=== PATIENT | male | born 1950 | race Caucasian/White ===

== ENCOUNTER 2017-04-07 17:56 | Observation (INO) | payer MEDICARE, MEDICAID ==
[~2017-04-07] VITALS: Ht 177.8 cm; Wt 93.4 kg
[~2017-04-07 17:56] MED LIST: CEPH500C PO; COU5 PO; DIGO250T PO; LISI2.5T66 PO; PRA20 PO; SPIR25TA17 PO; TOPR25T PO; TRS20T PO; VICODIN 5-3251 EACH PO
[2017-04-07 18:07] VITALS: BP 93/53; PULSE 75; RESP 17; O2SAT 97
[2017-04-07] MEDS ORDERED: HYDROmorphone 1 mg/mL Inj ONE (19:23)
[2017-04-07] MEDS ORDERED: Ondansetron 2 mg/mL 2 mL Inj ONE (19:30)
--- NOTE | 2017-04-07 20:36 | ED.REPORT ---
HPI-General Illness Date of Service Apr 07, 2017 ED Provider: Isaak Cai MD Patient is a 66 year old male with a history of diabetes, CHF, atrial fibrillation on Warfarin and pacemaker who presents to the ED due to a fall last night around 2100. Associated symptoms include right shoulder pain. He denies vomiting, chest pain, abdominal pain or syncope. The patient states that he became dizzy, fell and hit his head. Patient was initially evaluated at [facility] yesterday and was supposed to go back to [facility] for further imaging but through some miscommunication he ended up here at the ED. Per the patient's friend, the patient has had difficulty walking and thinks he would have another fall if he stayed at home. Nursing Notes Stated Complaint: PAIN AND EXHAUSTION Chief Complaint: General Complaint Nursing Notes Reviewed: Yes Allergies: Coded Allergies: No Known Allergies (Verified Allergy, Unknown, 04/07/17) Scheduled Cephalexin-Expunged Drug, Do Not Renew! (Cephalexin-Expunged Drug, Do Not Renew! ) 500 Mg Capsule 500 MG PO TID Digoxin-Expunged Drug, Do Not Renew! (Digoxin-Expunged Drug, Do Not Renew!) 250 Mcg Tablet 0.25 MG PO DAILY 250 MCG Lisinopril-Expunged Drug, Do Not Renew! (Lisinopril-Expunged Drug, Do Not Renew! ) 2.5 Mg Tablet 1.25 MG PO BID Metoprolol Suc-Expunged Drug, Do Not Renew! (Metoprolol Suc-Expunged Drug, Do Not Renew!) 25 Mg Tber 25 MG PO DAILY Pravastatin-Expunged Drug, Do Not Renew! (Pravachol-Expunged Drug, Do Not Renew! ) 20 Mg Tab 20 MG PO HS Spironolactone-Expunged Drug, Do Not Renew! (Spironolactone-Expunged Drug, Do Not Renew!) 25 Mg Tablet 12.5 MG PO DAILY Scheduled PRN Hydrocod/APAP-Expunged, Do Not Renew! (VICODIN 5/325-Expunged Drug, Do Not Renew ) 1 Each Tablet 0 EA PO Q4 PRN PRN Miscellaneous Medications Torsemide-Expunged Drug, Do Not Renew! (Torsemide-Expunged Drug, Do Not Renew!) 20 Mg Tab 20 MG PO Warfarin Inactive Drug Do Not Use (Coumadin Inactive Drug Do Not Use) 5 Mg Tablet 5 MG PO General Time Seen by MD: 20:34 Chief Complaint Other (right shoulder pain) Hx Obtained From: Patient Arrived By: Walk-in Sudden in Onset?: Yes Onset Occurred: Yesterday Symptom Duration: Since onset Caused by: Fall on ground Location: : Shoulder right Quality: Painful Severity: Current: Moderate Recent Healthcare: Recent doctor visit Past Medical History Past Medical History Reports: Congestive heart failure, Diabetes mellitus Reports: Atrial fibrillation Past Surgical History Reports: Pacemaker insertion Social History Alcohol Use: Denies alcohol use Other Social History: Good social support Ambulatory Status Independent Review of Systems Full Review of Systems Constitutional: Denies: Chills, Fever Respiratory: Denies: Non-productive cough Cardiovascular: Denies: Chest pain GI: Denies: Abdominal pain, Vomiting Musculoskeletal: Reports: Extremity pain (right shoulder) Skin: Denies Itching, Denies Rash Neurologic: Reports: Problem walking, Denies: Headache, Syncope Complete sys rev & neg: except as marked. Physical Exam Vital Signs Vital Signs Date Time Temp Pulse Resp B/P Pulse Ox O2 Delivery O2 Flow Rate FiO2 04/07/17 21:45 83 89/51 04/07/17 21:45 79 106/60 04/07/17 21:35 74 16 81/53 98 Room Air 04/07/17 18:07 37.0 75 17 93/53 97 Room Air Initial VS: Reviewed General/Constitutional: Awake, Alert Head / Eyes: Normocephalic, PERRL, EOMI hematoma over the right eye Respiratory / Chest: Atraumatic, Breath sounds NL, Breath sounds = bilat, No respiratory distress chest wall nontender Cardiovascular: Heart rate NL, Regular rhythm, Heart sounds NL Abdomen: Atraumatic, Soft, Non-tender Upper Extremities Upper Extremity / MS: Neurologic intact, Vascular intact right arm is in a sling Skin: Color NL, No rash, Warm, Dry Neurologic: Oriented X3, Speech NL, No motor deficits, No sensory deficits Psychiatric: Affect NL, Mood NL Interpretation & Diagnostics Interpretation & Diagnostics: SHOULDER CT: IMPRESSION: 1. Markedly comminuted, displaced proximal humeral fracture. The Dictated by: Alyssa Delgado M.D. on 04/07/2017 at 17:03 Approved by: Alyssa Delgado M.D. on 04/07/2017 at 17:06 Lab Results Interpretation Test 04/07/17 19:41 Hold Purple Top Tube Received (Received) Hold Blue Top Tube Received (Received) Hold [place] Top Tube Received (Received) Hold [place] Top Tube Received (Received) Re-Eval/Medical Decision Med Decision/Clinical Course CBC CMP INR at [facility] yesterday with were within normal limits. INR was 1.5. CT brain was negative. CT of the right shoulder done today at [facility] shows comminuted proximal right humeral fracture. This gentleman has some difficulty with ambulation with a wide-based gait and the degree of instability which I believe will benefit from physical therapy assessment as well as a short period of observation. I am suspicious that the difficulty with ambulation is directly related to the pain medication though further evaluation for his gait instability may be helpful regarding the recent fall and perhaps this was part of the cause for his fall in the first place. Time of Eval: 21:31 Re-Evaluation/Progress Note: Per nurses, the patient had a reasonable gait. Time of Eval: 21:57 Re-Evaluation/Progress Note: Discussed option of admit vs discharge. Time of Eval: 22:33 Re-Evaluation/Progress Note: Discussed plan for admit. Patient understands and agrees to plan. All questions were addressed. Consultation : Referral / Consult Name: Radha Reed DO Consulted With: Hospitalist Call Returned at: 23:05 Hog Room Supervisor: Agrees with eval, Agrees with plan, Accepts admit Counseled Regarding: Diagnosis, Lab results, Need for admission Discharge & Departure Primary Impression: Humeral fracture Encounter type: initial encounter Humerus Location: proximal Fracture type : closed Fracture morphology: unspecified fracture morphology Laterality: right Qualified Code: S42.201A - Unspecified fracture of upper end of right humerus, initial encounter for closed fracture Additional Impressions: Unsteady gait Hypotension Hypotension type: unspecified hypotension type Qualified Code: I95.9 - Hypotension, unspecified Disposition: ADMITTED TO HOSPITAL Discharge Condition All VS Reviewed: Yes Condition: Stable Referrals: Polo Nicole MD (PCP) Heidiibjoel Attestation Portions of this note were transcribed by Eden Enriquez. I, Dr. Cai personally performed the history, physical exam and medical decision-making; I reviewed and confirmed the accuracy of the information in the transcribed note. Signed by: Ana Rosa Wan, 04/07/17 copies to: Polo Nicole MD, Kirk H MD Apr 07, 2017 20:35 Tala Enriquez Apr 07, 2017 20:46
[2017-04-07 21:35] VITALS: BP 81/53; PULSE 74; RESP 16; O2SAT 98
[2017-04-07 21:45] VITALS: BP_SYST 106; BP_SYST 86; BP_SYST 89; BP_SYST 99; BP_DIAS 51; BP_DIAS 56; BP_DIAS 60; BP_DIAS 62; PULSE 79; PULSE 83
[2017-04-07 23:19] VITALS: BP 80/58; PULSE 83; RESP 16; O2SAT 98
[2017-04-07] MEDS ORDERED: Ondansetron 2 mg/mL 2 mL Inj IVPUSH PRN (23:40)
[2017-04-07] MEDS ORDERED: Alum-Mag Hydrox-Simeth 30 mL Suspension PO PRN (23:40)
[2017-04-08] VITALS (8 sets, daily range): BP systolic 82–108; BP diastolic 50–68; PULSE 75–95; RESP 17–18; O2SAT 90–98
[2017-04-08] MEDS ORDERED: Ondansetron 2 mg/mL 2 mL Inj IVPUSH PRN (01:20)
[2017-04-08] MEDS ORDERED: Alum-Mag Hydrox-Simeth 30 mL Suspension PO PRN (01:20)
[2017-04-08] MEDS ORDERED: Polyethylene Glycol (PEG) 17 Gm Powder PO PRN (01:20)
--- NOTE | 2017-04-08 01:57 | NUR ---
Admission Note Pt admitted to [facility] from ER around 0005, alert and oriented x3, states pain at right shoulder /10, "better" than at ER. Denies chest pain/NV/SOB/fever/chills. BP 82/55 HR 74.Lung sounds clear, HR regular, distant S1 S2, no murmur, Tele: V-paced 75 per monitoring manager. Abdomen soft, non tender, BT active. No edema at LEs. Right shoulder swollen, pain,bruises, CMS intact, right arm in sling. Right eye swollen,and bruises, abrasion at bilateral knees, left worse. Night resident Deb paged about pt low BP, request IVF,pain med. No urine output since 0900 yesterday per girl friend, aware. Oral fluids provided. IVF NS ordered and started. Call light oriented to pt, stephanie alarm on, pt informed to call when need OOB. Care ongoing.
[2017-04-08] MEDS: 0.9% Sodium Chloride 1,000 ML IV SCH ×3 (02:16→21:25)
[2017-04-08] MEDS ORDERED: Insulin Human NPH 100 Unit/mL 3 mL Inj SUBQ SCH (02:25)
[2017-04-08] MEDS: oxyCODONE-Acetamin 5-325 mg Tablet PO PRN ×5 (03:05→21:18)
[2017-04-08] MEDS: Insulin Human REGular 300 Unit/3 mL Inj - Low SUBQ SCH ×5 (03:35→21:20)
[2017-04-08 03:47] LABS: BASOPHILS % (AUTO) 0.1 % (0-3); EOSINOPHILS % (AUTO) 2.1 % (0-5); MONOCYTES % (AUTO) 10.3 % (4-12); Mean Corpuscular Hemoglobin 30.4 pg (27.0-35.0); Platelet Count 116 bil/L (150-400)
[2017-04-08 03:53] LABS: INR 1.57 ratio
--- NOTE | 2017-04-08 04:17 | PCM.HPMED ---
Subjective Date of Service Apr 08, 2017 Primary Provider: Admitting Physician: Radha Reed DO Primary Care Physician: Polo Nicole MD Attending Physician: Radha Reed DO Admit Status: From the Emergency Department Chief Complaint: Ground Level Fall History of Present Illness: Romie Torres is a 66-year-old gentleman with a past medical history of ischemic cardiomyopathy, atrial fibrillation on warfarin, type 2 diabetes, congestive heart failure, and obstructive sleep apnea who presents after a fall around 9 pm, 1 day prior. He said that about 1.5 miles into his evening walk, he felt unsteady and sweaty, stumbled forward, and tripped on a curb, landing on his right shoulder and hitting his head, without any loss any consciousness. He has shoulder pain that is worsened by pressure or movement. He said he felt these symptoms once in the past, but it was not as severe and he did not fall. He denies loss of consciousness while falling. He takes walks every evening, 1- 2 miles per day regularly without issues. He reports dizziness lasting 5-10 seconds when standing up. He denies chest discomfort, shortness of breath, leg claudication, nausea, vomiting, or abdominal pain. He has a chronic, non- productive cough. He also has numbness and tingling in his toes, which he relates to his diabetes. He denies edema or loss of strength in his lower extremities. He complains of soreness in his lower extremities since he started taking his statins. He has had generalized weakness and fatigue since his heart operations 4 years ago and says he takes 3-4 naps daily. He reports that he has not urinated since yesterday morning, but also admits to not drinking much fluid. In the ED, he was afebrile with a blood pressure of 93/53. He received a CT of his right shoulder which showed comminuted proximal right humeral fracture. Per the ED note, his CBC/CMP from [facility] were reportedly within normal limits, though I was unable to locate records of this. His INR was 1.5, and a brain CT was negative. Echocardiogram at in May 2016 with EF of 38%. He was seen to have difficulty with ambulation and a wide-based gait to the degree of instability in the ED. Review of Systems: A comprehensive review of systems was conducted with the patient and found to be negative except as above in the History of Present Illness. Allergies Coded Allergies: No Known Allergies (Verified Allergy, Unknown, 04/07/17) Home Medications amlodipine 5 mg tablet take 1 tablet by oral route every day aspirin 81 mg chewable tablet chew 1 tablet by oral route every day start 03/11 carvedilol 12.5 mg tablet take 1 and 1/2 tablets (for 18.75 mg) by oral route 2 times every day with food gabapentin 300 mg capsule take 1 capsule by oral route every bedtime daily glipizide 5 mg tablet take 1 tablet by oral route every day before meals metformin 1,000 mg tablet take 1 tablet by oral route 2 times every day daily spironolactone 25 mg tablet 1/2 tablet by mouth daily for heart Tylenol 325 mg tablet take 1 tablet by oral route every 4 hours as needed warfarin 5 mg tablet Lisinopril 5 mg tablet take 1 tablet by oral route on [place], Tu, Tr, Sa. Take 1/ 2 tab on M, W, F or take as directed by cardiology [facility] 1/2 tablet daily PMH Congestive heart failure Diabetes mellitus Atrial fibrillation Ischemic Cardiomyopathy Obstructive Sleep Apnea Surgical History Pacemaker insertion Reportedly 6 heart related surgeries, unknown which ones Reported 9 stents Family History Father: Stroke Mother: Breast Cancer Social History Hx Alcohol Use: No Hx Substance Use: No Smoking Status: Former Smoker (3-5 cigars per day for 5 years) Exam Vital Signs Vital Sign - Last Date Time Temp Pulse Resp B/P Pulse Ox O2 Delivery O2 Flow Rate FiO2 04/08/17 00:10 36.4 79 17 83/51 98 Room Air Exam General: No acute distress, well-developed, well-nourished, appropriately interactive HEENT: Normocephalic, atraumatic. External ears without defect. Pupils equal, round, and reactive to light and accommodation. Anicteric sclerae. Right periorbital edema with ecchymosis, nontender, extraoccular movements intact. Neck: Supple with full range of motion. No jugular venous distension. No bruits. No lymphadenopathy or thyromegaly. Cardiovascular: Regular rate and rhythm with murmur heard at LSB Pulmonary: Clear to auscultation bilaterally with no crackles, wheezes, or rhonchi. Normal respiratory effort with no use of accessory muscles. Abdomen: Bowel tones present. Soft, nontender, nondistended. No hepatosplenomegaly or masses appreciated. Extremities: Right Arm Sling with significant pain with light touch at right shoulder. Edematous right shoulder with some ecchymosis. Skin: Normal temperature, turgor, and texture; no rash, ulcers, or subcutaneous nodules appreciated. Neurological: Cranial nerves grossly intact. Normal muscle strength, tone, and bulk. Reflexes, coordination, and sensory function within normal limits. Intact motor and sensation of complete right upper extremity. Psychiatric: Normal mood and affect. Alert and oriented to person, place, and time. Lab and Diagnostics Labs Reportedly unremarkable cbc and bmp from [facility], but have been unable to locate records. Have ordered new set. INR 1.5 X-Rays, CTs and MRIs PROCEDURE: CT SHOULDER RIGHT W/O CONTRAST ([id number]) IMPRESSION: 1. Markedly comminuted, displaced proximal humeral fracture. Dictated by: Alyssa Delgado M.D. on 04/07/2017 at 17:03 Assessment & Plan Romie Torres is a 66-year-old gentleman with a past medical history of ischemic cardiomyopathy, atrial fibrillation on warfarin, type 2 diabetes and congestive heart failure who presents after a fall around 9 pm, 1 day prior. Hypotension, Present on Admission, active Patient presents with persistently low blood pressure with systolic in the 80' s. Per patient report he is chronically in the 70's-80's and is on several blood pressure medications. - Fluids at 100 mL/hr. Cautious hydration as patient has low EF reportedly as low as 20% a few years ago. Last EF 38% in May 2016. - Hold all blood pressure medications. Ground Level Fall, Present on Admission, Active Differential includes orthostatic hypotension, aortic stenosis, arrhythmia, lower extremity weakness. Patient had dizziness, postural unsteadiness prior to fall and had been 1.5 miles into his walk. Head CT at [facility] showed no acute intracranial abnormality. - Patient has been persistently hypotensive here at [facility]. - Orthostatic Vitals in the morning. - Physical Therapy Consult for further evaluation and recommendations of gait - Monitor on Telemetry - Consider interrogation of the ICD. Comminuted proximal right humeral fracture, present on admission, Active Seen on CT. - Pain management with oxycodone. - Currently in a splint Chronic Systolic Congestive Heart Failure, Present on Admission, Active Per records, EF 38% in May 2016. Patient does have Biventricular ICD placed in 2012. - Not currently in acute exacerbation - Continue home medications Carvedilol and Spironolactone. Atrial Fibrillation, not seen on admission. Regular rate and rhythm per evaluation. - Patient takes Carvedilol - Warfarin dosing per pharmacy - Monitor on telemetry Diabetes Mellitus Type 2, Present on Admission, Active - Low dose lispro sliding scale - Lantus 10 units nightly - Hold Metformin and glipizide Patient Status: Patient is admitted under observation status with expected length of stay less than 2 midnights due to severity of presenting symptoms and risk of adverse event. Code Status: DNR/DNI VTE Prophylaxis: Theraputic Anticoag with Warfarin VTE Mechanical Devices: Intermittant Pneumatic CD Resuscitation Status: DNR/DNI:Do Not Resuscitate/Intubate Attending Statement The patient was seen and examined together with house staff on 02/06/2017 and I agree with the history, exam and plan as outlined in the note above. Christopher Moulton DO Apr 08, 2017 00:37 CURT NESS MD Apr 08, 2017 02:37 Radha Reed DO Apr 08, 2017 06:22
[2017-04-08] MEDS ORDERED: ATRV10T PO (06:14)
[2017-04-08] MEDS ORDERED: WARF5TAB7 PO ×2 (06:14→06:35)
[2017-04-08] MEDS ORDERED: AMLO5TAB2 PO (06:14)
[2017-04-08] MEDS ORDERED: CARV12.52 PO (06:14)
[2017-04-08] MEDS ORDERED: OXYC-388 PO (06:14)
[2017-04-08] MEDS ORDERED: SPIR25TA3 PO (06:14)
[2017-04-08] MEDS ORDERED: LISI-571 PO (06:14)
[2017-04-08] MEDS ORDERED: GABA-502 PO (06:14)
[2017-04-08] MEDS ORDERED: METFORMIN HCL PO (06:14)
[2017-04-08] MEDS ORDERED: GLPZ5T PO (06:14)
[2017-04-08 09:52] LABS: INR 1.49 ratio
[2017-04-08 09:59] LABS: APPEARANCE,URINE CLEAR (CLEAR,HAZY); COLOR,URINE YELLOW (YELLOW); OCCULT BLOOD,URINE NEGATIVE (NEGATIVE); PH,URINE 5.5 (5.0-8.0); UROBILINOGEN,URINE NORMAL (NORMAL)
--- NOTE | 2017-04-08 14:30 | NUR ---
NICHOLE explained and signed. Copy of NICHOLE and Medicare self administered medication information given to pt.
--- NOTE | 2017-04-08 17:13 | PCM.PHAPRO ---
Progress Date of Service: Apr 08, 2017 Warfarin dosing Date INR 1.49 INR change Warf Dose 5MG A/ INR is subtherapeutic. P/Continue home dose of 5mg warfarin and reevaluate with AM labs tomorrow. Mk Urbina Apr 08, 2017 17:13
--- NOTE | 2017-04-08 18:19 | NUR ---
Pain: Patient complained of Rt shoulder pain throughout day. States that at rest shoulder pain 2/10 and with movement increases to 6-8/10. Percocet administered as needed per orders. Rt arm in sling, ice pack applied.
--- NOTE | 2017-04-08 19:27 | DRSVH ---
PROCEDURE: US RENAL SONOGRAM INDICATIONS: Acute renal insufficiency. TECHNIQUE: Real-time scanning was performed of the kidneys and bladder, with image documentation. COMPARISON: None. FINDINGS: Kidneys: Kidneys are normal in size. Right kidney measures 11.0 cm long; left kidney measures 13.0 cm long. Right renal cortical thickness is 1.9 cm; left renal cortical thickness is 1.7 cm. Renal c ortical echotexture is normal. No hydronephrosis or nephrolithiasis. No suspicious solid mass lesio ns. Bladder: The bladder was not evaluated due to the patient having voided just before the beginning of the examination. Miscellaneous: No free pelvic fluid. IMPRESSION: No hydronephrosis or nephrolithiasis found. Bladder is not distended but was not effect ively visualize due to patient having voided just before the beginning of the examination. Dictated by: Antione Griffith M.D. on 04/08/2017 at 19:24 Approved by: Antione Griffith M.D. on 04/08/2017 at 19:25
[2017-04-08] MEDS ORDERED: Insulin GLARgine 100 Unit/mL Syringe SUBQ SCH (21:00)
[2017-04-09 00:35] VITALS: BP 96/62; PULSE 94; RESP 18; O2SAT 90
[2017-04-09 05:20] VITALS: BP 121/77; PULSE 92; RESP 18; O2SAT 96
[2017-04-09] MEDS: oxyCODONE-Acetamin 5-325 mg Tablet PO PRN ×2 (05:25→09:35)
[2017-04-09 06:04] LABS: Mean Corpuscular Hemoglobin 30.7 pg (27.0-35.0); Mean Corpuscular Volume 91.4 fL (81-100); Platelet Count 109 bil/L (150-400)
[2017-04-09 06:05] LABS: BASOPHILS % (AUTO) 0.2 % (0-3); EOSINOPHILS % (AUTO) 4.1 % (0-5); MONOCYTES % (AUTO) 9.4 % (4-12); NEUTROPHILS % (AUTO) 71.6 % (40-74)
[2017-04-09 06:15] LABS: INR 1.28 ratio
[2017-04-09 06:26] VITALS: PULSE 92
--- NOTE | 2017-04-09 06:30 | NUR ---
Shoulder pain Pt reports of having shoulder pain, 9/10 with movement. Denies chest pain, sob, n/v or abd discomfort. Has been pleasant and cooperative with care. Percocet 1 tab administered PRN. Pt's VSS and has been afebrile. Telemetry monitoring noted V-paced 100. Will continue to monitor.
[2017-04-09] MEDS: 0.9% Sodium Chloride 1,000 ML IV SCH (07:25)
--- NOTE | 2017-04-09 08:29 | PCM.PHAPRO ---
Progress Date of Service: Apr 09, 2017 Requesting Provider: Ghazala Oliveira MD Warfarin dosing INR GOAL 2-3 -Apr 09-Apr 1.49 1.28 -0.21 5MG 5mg Andrea Kwok [facility] Apr 09, 2017 08:29
[2017-04-09] MEDS: Insulin Human REGular 300 Unit/3 mL Inj - Low SUBQ SCH (09:15)
--- NOTE | 2017-04-09 09:27 | PCM.DIMED ---
Discharge Instructions Date of Service Apr 09, 2017 Dates of Hospitalization Apr 07, 2017 at 22:59 Discharge Diagnosis Discharge Diagnosis near syncope,acute kidney failure secondary to dehydration,Right humeral fracture Diet Discharge Diet: Diabetic Activity Discharge Activity: Other (as tolerated) Call your provider Call your provider for: Fever or Chills, Shortness of breath, Bleeding, Chest pain, Vomitting, Excessive diarrhea, Weakness (unilateral) Patient Instructions Follow-up Provider: Polo Nicole MD Follow-up with PCP in: Other (3-5 days sooner if problems) Ghazala Oliveira MD Apr 09, 2017 09:27
--- NOTE | 2017-04-09 10:18 | PCM.DC.MED ---
Discharge Summary Date of Service Apr 09, 2017 Dates of Hospitalization Date of Hospital Admission Apr 07, 2017 at 22:59 Date of Discharge: Apr 09, 2017 Providers: Admitting Physician: Radha Reed DO Primary Care Physician: Polo Nicole MD Attending Physician: Ghazala Oliveira MD Diagnosis at Time of Discharge Diagnosis at Time of Discharge near syncope,acute kidney failure secondary to dehydration,Right humeral fracture Procedures XRay, CTs & MRIs PROCEDURE: CT SHOULDER RIGHT W/O CONTRAST (85060) IMPRESSION: 1. Markedly comminuted, displaced proximal humeral fracture. Dictated by: Alyssa Delgado M.D. on 04/07/2017 at 17:03 PROCEDURE: US RENAL SONOGRAM INDICATIONS: Acute renal insufficiency. TECHNIQUE: Real-time scanning was performed of the kidneys and bladder, with image documentation. COMPARISON: None. FINDINGS: Kidneys: Kidneys are normal in size. Right kidney measures 11.0 cm long; left kidney measures 13.0 cm long. Right renal cortical thickness is 1.9 cm; left renal cortical thickness is 1.7 cm. Renal cortical echotexture is normal. No hydronephrosis or nephrolithiasis. No suspicious solid mass lesions. Bladder: The bladder was not evaluated due to the patient having voided just before the beginning of the examination. Miscellaneous: No free pelvic fluid. IMPRESSION: No hydronephrosis or nephrolithiasis found. Bladder is not distended but was not effectively visualize due to patient having voided just before the beginning of the examination. Dictated by: Antione Griffith M.D. on 04/08/2017 at 19:24 Approved by: Antione Griffith M.D. on 04/08/2017 at 19:25 Brief History Romie Torres is a 66-year-old gentleman with a past medical history of ischemic cardiomyopathy, atrial fibrillation on warfarin, type 2 diabetes, congestive heart failure, and obstructive sleep apnea who presents after a fall around 9 pm, 1 day prior. He said that about 1.5 miles into his evening walk, he felt unsteady and sweaty, stumbled forward, and tripped on a curb, landing on his right shoulder and hitting his head, without any loss any consciousness. He has shoulder pain that is worsened by pressure or movement. He said he felt these symptoms once in the past, but it was not as severe and he did not fall. He denies loss of consciousness while falling. He takes walks every evening, 1- 2 miles per day regularly without issues. He reports dizziness lasting 5-10 seconds when standing up. He denies chest discomfort, shortness of breath, leg claudication, nausea, vomiting, or abdominal pain. He has a chronic, non- productive cough. He also has numbness and tingling in his toes, which he relates to his diabetes. He denies edema or loss of strength in his lower extremities. He complains of soreness in his lower extremities since he started taking his statins. He has had generalized weakness and fatigue since his heart operations 4 years ago and says he takes 3-4 naps daily. He reports that he has not urinated since yesterday morning, but also admits to not drinking much fluid. In the ED, he was afebrile with a blood pressure of 93/53. He received a CT of his right shoulder which showed comminuted proximal right humeral fracture. Per the ED note, his CBC/CMP from [facility] were reportedly within normal limits, though I was unable to locate records of this. His INR was 1.5, and a brain CT was negative. Echocardiogram at in May 2016 with EF of 38%. He was seen to have difficulty with ambulation and a wide-based gait to the degree of instability in the ED. Hospital Course Romie Torres is a 66-year-old gentleman with a past medical history of ischemic cardiomyopathy, atrial fibrillation on warfarin, type 2 diabetes and congestive heart failure who presents after a fall around 9 pm, 1 day prior. Hypotension, Present on Admission, active Patient presents with persistently low blood pressure with systolic in the 80' s. Per patient report he is chronically in the 70's-80's and is on several blood pressure medications. - Fluids at 100 mL/hr. Cautious hydration as patient has low EF reportedly as low as 20% a few years ago. Last EF 38% in May 2016. - Hold all blood pressure medications. -With IV fluid hydration, blood pressure improved and was no longer having any symptoms of lightheadedness and was able to ambulate with physical therapy and on his own without problems Ground Level Fall, Present on Admission, Active Differential includes orthostatic hypotension, aortic stenosis, arrhythmia, lower extremity weakness. Patient had dizziness, postural unsteadiness prior to fall and had been 1.5 miles into his walk. Head CT at [facility] showed no acute intracranial abnormality. - Patient has been persistently hypotensive here at [facility]. - Orthostatic Vitals in the morning. - Physical Therapy Consult for further evaluation and recommendations of gait - Monitor on Telemetry - Consider interrogation of the ICD which was done the day prior to discharge and over the past at least 2 months there were no significant abnormalities found Acute renal failure, present on admission -I did not get his records from [facility] and his BUN on that visit which was April 06 was 25 and creatinine is 1.10 with estimated GFR of greater than 60. -Did obtain renal ultrasound which did not show any significant abnormalities -UA did not show any significant abnormalities here -Marked improvement in BUN and creatinine and GFR after IV fluid hydration in fact patient no longer had any symptoms of feeling lightheaded and unsteady gait. -Have held all his antihypertensives including lisinopril, Norvasc, spironolactone. But did continue his carvedilol given his history of A. fib. Comminuted proximal right humeral fracture, present on admission, Active Seen on CT. - Pain management with oxycodone. - Currently in a splint -Patient has appointment on Monday to follow-up with orthopedic surgery, Dr. Lorenzo, in [place] Chronic Systolic Congestive Heart Failure, Present on Admission, Active Per records, EF 38% in May 2016. Patient does have Biventricular ICD placed in 2012. - Not currently in acute exacerbation - Continue home medications Carvedilol . I will know we have stopped lisinopril and amlodipine and spironolactone secondary to his acute renal failure and dehydration. This will need to be reassessed as an outpatient by his primary care provider. Atrial Fibrillation, not seen on admission. Regular rate and rhythm per evaluation. - Patient takes Carvedilol - Warfarin dosing per pharmacy and is to continue upon discharge and follow up with his primary care provider - Monitor on telemetry Diabetes Mellitus Type 2, Present on Admission, Active - Low dose lispro sliding scale - Lantus 10 units nightly - Hold Metformin and glipizide Code Status: DNR/DNI Exam Vital Signs (Last) Date Time Temp Pulse Resp B/P Pulse Ox O2 Delivery O2 Flow Rate FiO2 04/09/17 06:26 92 04/09/17 05:20 36.9 18 121/77 96 Room Air Exam Constitutional: Elderly male in no acute distress Head: Does have improvement of the right periorbital contusion Eyes: PERRLA BC Neck: No adenopathy Chest: Clear to auscultation Cor: Regular rate and rhythm S1-S2 without murmur abdomen soft nontender bowel sounds present Abdomen: Soft nontender bowel sounds present Extremities: No pedal edema Skin: No rashes Psych: Mood and affect are appropriate Neuro: Alert and oriented 3, motor strength is intact bilaterally Laboratory Tests 72 Hours Test 04/07/17 09:15 04/07/17 19:41 04/08/17 09:20 04/09/17 05:35 Urine Color Yellow (YELLOW) Urine Appearance Clear (CLEAR,HAZY) Urine pH 5.5 (5.0-8.0) Urine Specific Bigelow 1.015 (1.003-1.035) Urine Protein Tracemg/dL (NEG,TRACE) Urine Glucose (UA) Negativemg/dL (NEGATIVE) Urine Ketones Negativemg/dL (NEGATIVE) Urine Occult Blood Negative (NEGATIVE) Urine Nitrite Negative (NEGATIVE) Urine Bilirubin Negative (NEGATIVE) Urine Urobilinogen Normalmg/dL (NORMAL) Urine Leukocyte Esterase Negative (NEGATIVE) Urine RBC 0-2/hpf (0-2) Urine WBC 0-5/hpf (0-5) Urine Epithelial Cells None/hpf (NONE-MOD) Urine Crystals None seen (NONE SEEN) Urine Bacteria None/hpf (NONE-FEW) Urine Hyaline Casts Occasional/lpf (NONE) Urine Granular Casts None seen (NONE SEEN) Urine Waxy Casts None seen (NONE SEEN) Urine Red Blood Cell Casts None seen (NONE SEEN) Urine White Blood Cell Casts None seen (NONE SEEN) Urine Mucus None seen (None Seen) Urine Trichomonas None seen (NONE SEEN) Urine Yeast None (NONE SEEN) Urinalysis Comment None Urine Culture Reflexed Not indicated White Blood Count 8.0th/mm3 (3.8-10.1) 8.5th/mm3 (3.8-10.1) Red Blood Count 3.85mil/mm3 (4.40-5.80) 3.61mil/mm3 (4.40-5.80) Hemoglobin 11.7g/dL (13.8-17.2) 11.1g/dL (13.8-17.2) Hematocrit 35.8% (41.0-50.0) 33.0% (41.0-50.0) Mean Corpuscular Volume 93.0fL (81-100) 91.4fL (81-100) Mean Corpuscular Hemoglobin 30.4pg (27.0-35.0) 30.7pg (27.0-35.0) Mean Corpuscular Hemoglobin Concent 32.7% (32.0-37.0) 33.6% (32.0-37.0) Red Cell Distribution Width 13.5% (12.3-15.4) 13.0% (12.3-15.4) Platelet Count 116bil/L (150-400) 109bil/L (150-400) Neutrophils (%) (Auto) 70.0% (40-74) 71.6% (40-74) Lymphocytes (%) (Auto) 17.4% (14-46) 14.5% (14-46) Monocytes (%) (Auto) 10.3% (4-12) 9.4% (4-12) Eosinophils (%) (Auto) 2.1% (0-5) 4.1% (0-5) Basophils (%) (Auto) 0.1% (0-3) 0.2% (0-3) Hold Purple Top Tube Received (Received) Prothrombin Time 16.9sec (8.1-12.5) 16.1sec (8.1-12.5) 13.8sec (8.1-12.5) Prothromb Time International Ratio 1.57ratio 1.49ratio 1.28ratio Hold Blue Top Tube Received (Received) Sodium Level 132mEq/L (134-144) 133mEq/L (134-144) 135mEq/L (134-144) Potassium Level 5.0mEq/L (3.5-5.2) 5.1mEq/L (3.5-5.2) 5.2mEq/L (3.5-5.2) Chloride Level 95mEq/L (97-108) 95mEq/L (97-108) 101mEq/L (97-108) Carbon Dioxide Level 20mmol/L (18-29) 21mmol/L (18-29) 20mmol/L (18-29) Blood Urea Nitrogen 42mg/dL (8-27) 41mg/dL (8-27) 31mg/dL (8-27) Creatinine 2.42mg/dL (0.76-1.27) 2.03mg/dL (0.76-1.27) 1.36mg/dL (0.76-1.27) Estimat Glomerular Filtration Rate 29mL/min (>59) 35mL/min (>59) 56mL/min (>59) Glucose Level 227mg/dL (60-99) 217mg/dL (60-99) 172mg/dL (60-99) Calcium Level 8.2mg/dL (8.5-10.1) 8.1mg/dL (8.5-10.1) 8.0mg/dL (8.5-10.1) Total Bilirubin 0.7mg/dL (0.0-1.2) Aspartate Amino Transf (AST/SGOT) 25U/L (0-50) Alanine Aminotransferase (ALT/SGPT) 22U/L (0-44) Alkaline Phosphatase 55U/L (25-160) Total Protein 6.9g/dL (6.4-8.4) Albumin 4.0g/dL (3.4-5.0) Hold Yale Top Tube Received (Received) Hold Carpenter Top Tube Received (Received) Test 04/07/17 09:15 04/07/17 19:41 04/09/17 05:35 Urine Color Yellow (YELLOW) Urine Appearance Clear (CLEAR,HAZY) Urine pH 5.5 (5.0-8.0) Urine Specific Bigelow 1.015 (1.003-1.035) Urine Protein Tracemg/dL (NEG,TRACE) Urine Glucose (UA) Negativemg/dL (NEGATIVE) Urine Ketones Negativemg/dL (NEGATIVE) Urine Occult Blood Negative (NEGATIVE) Urine Nitrite Negative (NEGATIVE) Urine Bilirubin Negative (NEGATIVE) Urine Urobilinogen Normalmg/dL (NORMAL) Urine Leukocyte Esterase Negative (NEGATIVE) Urine RBC 0-2/hpf (0-2) Urine WBC 0-5/hpf (0-5) Urine Epithelial Cells None/hpf (NONE-MOD) Urine Crystals None seen (NONE SEEN) Urine Bacteria None/hpf (NONE-FEW) Urine Hyaline Casts Occasional/lpf (NONE) Urine Granular Casts None seen (NONE SEEN) Urine Waxy Casts None seen (NONE SEEN) Urine Red Blood Cell Casts None seen (NONE SEEN) Urine White Blood Cell Casts None seen (NONE SEEN) Urine Mucus None seen (None Seen) Urine Trichomonas None seen (NONE SEEN) Urine Yeast None (NONE SEEN) Urinalysis Comment None Urine Culture Reflexed Not indicated Hold Purple Top Tube Received (Received) Hold Blue Top Tube Received (Received) Total Bilirubin 0.7mg/dL (0.0-1.2) Aspartate Amino Transf (AST/SGOT) 25U/L (0-50) Alanine Aminotransferase (ALT/SGPT) 22U/L (0-44) Alkaline Phosphatase 55U/L (25-160) Total Protein 6.9g/dL (6.4-8.4) Albumin 4.0g/dL (3.4-5.0) Hold Yale Top Tube Received (Received) Hold Carpenter Top Tube Received (Received) White Blood Count 8.5th/mm3 (3.8-10.1) Red Blood Count 3.61mil/mm3 (4.40-5.80) Hemoglobin 11.1g/dL (13.8-17.2) Hematocrit 33.0% (41.0-50.0) Mean Corpuscular Volume 91.4fL (81-100) Mean Corpuscular Hemoglobin 30.7pg (27.0-35.0) Mean Corpuscular Hemoglobin Concent 33.6% (32.0-37.0) Red Cell Distribution Width 13.0% (12.3-15.4) Platelet Count 109bil/L (150-400) Neutrophils (%) (Auto) 71.6% (40-74) Lymphocytes (%) (Auto) 14.5% (14-46) Monocytes (%) (Auto) 9.4% (4-12) Eosinophils (%) (Auto) 4.1% (0-5) Basophils (%) (Auto) 0.2% (0-3) Prothrombin Time 13.8sec (8.1-12.5) Prothromb Time International Ratio 1.28ratio Sodium Level 135mEq/L (134-144) Potassium Level 5.2mEq/L (3.5-5.2) Chloride Level 101mEq/L (97-108) Carbon Dioxide Level 20mmol/L (18-29) Blood Urea Nitrogen 31mg/dL (8-27) Creatinine 1.36mg/dL (0.76-1.27) Estimat Glomerular Filtration Rate 56mL/min (>59) Glucose Level 172mg/dL (60-99) Calcium Level 8.0mg/dL (8.5-10.1) Discharge Medications Discharge Medications ([metformin HCL]) 1,000 MG PO BIDWM (Reported) Atorvastatin (Lipitor) 10 Mg Tab 10 MG PO DAILY (Reported) Carvedilol (Carvedilol) 12.5 Mg Tablet 1.5 TABLET PO BIDWM (Reported) Gabapentin (Gabapentin) 300 Mg Capsule 300 MG PO BID (Reported) Glipizide (Glipizide) 5 Mg Tablet 5 MG PO BIDBL (Reported) Warfarin Sodium (Warfarin Sodium) 5 Mg Tablet 5 MG PO SUN,MON,,MON (Reported ) Warfarin Sodium (Warfarin Sodium) 5 Mg Tablet 2.5 MG PO MON,MON,WED (Reported) As needed oxyCODONE-Aspirin 5-325 mg (oxyCODONE-Aspirin 5-325 mg) 1 Each Tablet 1 TABLET PO Q4H PRN PRN For Pain (Reported) Followup Plan Disposition: Home Discharge Diet: Diabetic Discharge Activity: Other (as tolerated) Follow-up Provider: Polo Nicole MD Follow-up with PCP in: Other (3-5 days sooner if problems) Time spent Greater than 30 minutes was spent in preparation of discharge with greater than 50% of that time dedicated to patient counseling and coordination of care. copies to: Polo Nicole MD, Cheryl A MD Apr 09, 2017 10:18
[2017-04-09 10:48] VITALS: PULSE 94
--- NOTE | 2017-04-09 11:10 | NUR ---
Discharge: Patient discharged to home @ approx 1100. IV d/c'd intact, telemetry removed, monitoring manager notified. Personal belongings sent home with patient. Reviewed home medication list, d/c instructions and follow up appointments. Verbalized understanding. Escorted to main entrance via wheelchair accompanied by MANNEQUIN WIG MAKER. No apparent distress noted at time of discharge.
--- NOTE | 2017-04-09 11:28 | NUR ---
Social Work- Initial Assessment/Discharge Data: See Initial Assessment for additional details. Pt is a 66 y.o. male admitted for R Humerus Fracture, Hypotension per H&P. Pt's insurance is [facility] and [facility]. Pt's PCP is Polo Nicole MD. Pt's NOK/DPOA is rashad Torres, . Pt's readmit risk score is 3. Pt discussed in multidisciplinary rounds- pt to d/c today. No discharge needs identified in rounds. SW met with pt and friends at bedside to complete initial assessment, SW role explained. Pt alert and oriented x3. Pt's capacity for self-care assessed. Pt has no designated d/c planning contact but his DPOA is rashad Torres. Pt resides in [place] in an apartment with an elevator to enter. Pt reports using no DME at baseline but has a cane and walker available for use. Pt drives. Pt is independent with ADLs and self-care. Pt may have history with [facility] and pt reports being checked on approximately once a month by Riley from [facility] [employer]. Pt is unsure if he had HHRN PT after his CHF admission. Upon chart review, pt was transferred to [facility] at admission in 2013. Pt reports no SNF history. Pt reports that his friends and family will assist him at home, though he has not created a schedule for care yet. Pt declined any questions or concerns related to coordinating his friends and family. Pt reports that his friend Rosalba will pick him up at d/c. SW provided D/C Checklist at bedside, wrote phone number and plan on whiteboard. No discharge needs at this time. Assessment: Pt who is independent at baseline. Plan: Pt to discharge home with his friend to transport via POV. Friends and family to assist pt at home as necessary. Pt coordinating this after d/c. No discharge needs. FRANCOIS Foreman Addendum: 04/09/17 at 1131 by ARTHUR RICHARDSON Amended: Links added.
== END 2017-04-09 11:00 | disposition home or self-care (01) ==
LOC: SED 17:56 → MPC 22:59
PROVIDERS: ADMIT Internal Medicine; ATTEND Specialist
DX: S42.201A Unspecified fracture of upper end of right humerus, initial encounter for closed fracture (principal); W01.0XXA Fall on same level from slipping, tripping and stumbling without subsequent striking against object, initial encounter; Y93.01 Activity, walking, marching and hiking; R55 Syncope and collapse; N17.9 Acute kidney failure, unspecified; E86.0 Dehydration; I95.9 Hypotension, unspecified; I48.91 Unspecified atrial fibrillation; I25.5 Ischemic cardiomyopathy; E11.9 Type 2 diabetes mellitus without complications; I50.22 Chronic systolic (congestive) heart failure; G47.33 Obstructive sleep apnea (adult) (pediatric); Z87.891 Personal history of nicotine dependence; Z95.5 Presence of coronary angioplasty implant and graft; Z79.01 Long term (current) use of anticoagulants; Z79.4 Long term (current) use of insulin; Z79.84 Long term (current) use of oral hypoglycemic drugs; Z66 Do not resuscitate
CPT/HCPCS: 36415; 76770; 80048; 80053; 81000; 85025; 85610; 96374; 96375; 97161; 99285; J1170; J1815; J2405; J7030